=== PATIENT | female | born 1945 | race Caucasian/White ===

== ENCOUNTER → 2017-09-27 | Outpatient (CLI) | payer OTHER, MEDICARE ==
[~2017-09-27] VITALS: Ht 154.9 cm; Wt 102.1 kg
[~2017-09-27] MED LIST: ACETAMINOPHEN 500 MG TAB PO SCH; ALBU18002 INH; ASPI81TA28 PO; CEFAZOLIN 2000MG IV PUSH 15 ML IV SCH; CHOL1000 PO; CeleBREX 200 MG CAP PO SCH; DEXAMETHASONE 4 MG TAB PO SCH; DICL50TA3 PO; FAMOTIDINE 20 MG TAB PO SCH; FLUT1INH INH; GABA-113 PO; GABAPENTIN 300 MG CAP PO SCH; GEMF600T3 PO; GLC/500 PO; LACTATED RINGER'S 1000ML 1,000 ML IV SCH; LACTATED RINGER'S 1000ML 500 ML IV SCH; LISI40TA PO; METO100T44 PO; METOCLOPRAMIDE HCL 10 MG TAB PO SCH; MISO100T PO; OMEG10007 PO; PANT40TA PO; RISP1TAB68 PO; RISP2TAB22 PO; ROPIVACAINE 5MG/ML 30 ML 150 MG, BUPIVACAINE 0.5% MPF INJ 30 ML, EpINEphrine HCL INJ 0.... INFIL SCH; SERT-234 PO; SNT/10 PO
[2017-09-27 13:09] VITALS: Ht 154.9 cm; Wt 102.1 kg
--- NOTE | 2017-09-27 14:10 | PAT Medication Instructions ---
Service Date Sep 27, 2017. Current Home Medication List Albuterol Sulfate (Proair Respiclick), 2 PUFFS INH PRN Aspirin (Aspirin Ec), 81 MG PO QAM Cholecalciferol (Vitamin D3), 1 TAB PO QAM Diclofenac (Voltaren), 50 MG PO BID Fish Oil (Dubois-3), 1 CAP PO QAM Fluticasone Furoate-Vilanterol (Breo Ellipta), 1 PUFF INH QAM Gabapentin (Neurontin), 300 MG PO QID Gemfibrozil (Lopid), 600 MG PO BID Lisinopril (Zestril), 40 MG PO QAM Metformin Hcl (Glucophage), 500 MG PO BID Metoprolol Succ (Toprol Xl) (Toprol-Xl ), 100 MG PO QAM Misoprostol (Cytotec), 100 MCG PO BID Pantoprazole (Protonix), 40 MG PO QAM Risperidone (Risperdal), 1 MG PO QAM Risperidone (Risperdal), 2 MG PO HS Sertraline (Zoloft), 200 MG PO HS Zaleplon (Sonata), 10 MG PO HS PRN for PRN Medication Instructions For Your Scheduled Surgery -Contact your surgeon for instructions for: Diclofenac (Voltaren), 50 MG PO BID - Hold the following medications 2 weeks prior to surgery: Fish Oil (Dubois-3), 1 CAP PO QAM - Hold the following medications 24 hours prior to surgery: Gemfibrozil (Lopid), 600 MG PO BID - Hold the following medications the morning of surgery: Cholecalciferol (Vitamin D3), 1 TAB PO QAM Lisinopril (Zestril), 40 MG PO QAM Metformin Hcl (Glucophage), 500 MG PO BID Misoprostol (Cytotec), 100 MCG PO BID - Take the following medications the morning of surgery with a sip of water: Albuterol Sulfate (Proair Respiclick), 2 PUFFS INH PRN (if needed, and bring it with you to the hospital) Aspirin (Aspirin Ec), 81 MG PO QAM Fluticasone Furoate-Vilanterol (Breo Ellipta), 1 PUFF INH QAM Gabapentin (Neurontin), 300 MG PO QID Metoprolol Succ (Toprol Xl) (Toprol-Xl ), 100 MG PO QAM Pantoprazole (Protonix), 40 MG PO QAM Risperidone (Risperdal), 1 MG PO QAM - Take the following medications as scheduled the night before surgery: Albuterol Sulfate (Proair Respiclick), 2 PUFFS INH PRN (if needed) Gabapentin (Neurontin), 300 MG PO QID Risperidone (Risperdal), 2 MG PO HS Misoprostol (Cytotec), 100 MCG PO BID Sertraline (Zoloft), 200 MG PO HS Zaleplon (Sonata), 10 MG PO HS PRN for PRN (if needed) If you have any questions please call us at [phone] or [phone] or [phone]
--- NOTE | 2017-09-27 14:50 | DIAGNOSTIC IMAGING REPORT ---
CHEST 2 VIEWS ROUTINE CLINICAL HISTORY: pat preoperative evaluation COMPARISON STUDY: No previous studies for comparison. FINDINGS: The bones soft tissues and hemidiaphragms are normal. The cardiomediastinal silhouette is normal. The lungs are clear. The pulmonary vasculature is normal. IMPRESSION: Negative chest. The above report was generated using voice recognition software. It may contain grammatical, syntax or spelling errors. Electronically signed by: Kelvin Gonzalez M.D. 09/27/2017 2:49 PM Dictated Date/Time: 09/27/2017 2:47 PM
[2017-09-27 14:57] LABS: PTT PATIENT 24.3 SECONDS (21.0-31.0)
[2017-09-27 15:00] LABS: BASO % 0.4 %; BASO ABS # 0.04 K/uL (0-0.2); EOS % 3.2 %; EOS ABS # 0.31 K/uL (0-0.5); HEMATOCRIT 33.4 % (37-47); HEMOGLOBIN 11.2 g/dL (12.0-16.0); IG# 0.02 K/uL (0.00-0.02); LYMPH % 28.7 %; LYMPH ABS # 2.78 K/uL (1.2-3.4); MEAN CELL VOLUME 87.9 fL (80-100); MEAN CORPUSCULAR HEMOGLOBIN 29.5 pg (25-34); MEAN CORPUSCULAR HGB CONC 33.5 g/dl (32-36); MEAN PLATELET VOLUME 10.3 fL (7.4-10.4); MONO % 6.7 %; MONO ABS # 0.65 K/uL (0.11-0.59); NEUT % 60.8 %; NEUT ABS # 5.89 K/uL (1.4-6.5); PLATELET COUNT 249 K/uL (130-400); RED CELL DISTRIBUTION WIDTH CV 13.2 % (11.5-14.5); RED CELL DISTRIBUTION WIDTH SD 42.7 fL (36.4-46.3); WHITE BLOOD COUNT 9.69 K/uL (4.8-10.8)
[2017-09-27 15:56] LABS: HEMOGLOBIN A1C 5.8 % (4.5-5.6)
[2017-09-27 16:21] LABS: ALBUMIN 4.1 gm/dl (3.4-5.0); CALCIUM 9.5 mg/dl (8.5-10.1); CREATININE 0.95 mg/dl (0.60-1.20); POTASSIUM 4.2 mmol/L (3.5-5.1)
--- NOTE | 2017-10-04 11:55 | HISTORY & PHYSICAL EXAMINATION ---
DATE OF ADMISSION: 10/23/2017 CHIEF COMPLAINT: Left knee pain. HISTORY OF PRESENT ILLNESS: Ms. Michele is a 72-year-old female with a multiple-year history of left knee pain. The patient rates her pain a 10/10. She has pain with her daily activities. She has limited standing and walking tolerance. Pain is worse with weightbearing. The patient uses a walker to ambulate. She has had injections, bracing, NSAIDs and PT over the years without relief. She has failed conservative treatment and is scheduled for a left knee replacement. PAST MEDICAL HISTORY: Aortic stenosis, pulmonary hypertension, diabetes, and hypercholesterolemia. She denies history of DVT. PAST SURGICAL HISTORY: Hysterectomy, cholecystectomy, right trigger thumb and right carpal tunnel release. SOCIAL HISTORY: The patient denies alcohol or tobacco use. She quit smoking in the . She lives in a single-edvin home with her son and is retired. FAMILY HISTORY: Negative for DVT. MEDICATIONS: Amlodipine 5 mg daily, fexofenadine 180 mg daily, Janumet 50 mg 2 times daily, Crestor 10 mg daily, furosemide 40 mg daily, Welchol 625 mg, Micardis 40 mg daily, sertraline 100 mg daily, Maxair 200 mcg 2 puffs q. 4-6 hours p.r.n., aspirin 81 mg, vitamin E 400 units, Maalox, omega 3, Aleve p.r.n., zaleplon 10 mg. ALLERGIES: CODEINE CAUSES SHAKING AND SHORTNESS OF BREATH. REVIEW OF SYSTEMS: See HPI. Ten other systems reviewed, all negative. PHYSICAL EXAMINATION: VITAL SIGNS: Height 5 feet 1 inch, weight 226 pounds. BMI is 43. GENERAL: This is a well-developed, well-nourished female who is alert and oriented x3. Mood and affect are appropriate. HEENT: Normocephalic, atraumatic. Mucous membranes are moist and intact. NECK: Supple without lymphadenopathy. HEART: Regular rate and rhythm. She has a slight grade 2 systolic murmur. LUNGS: Clear to auscultation without wheezes or rhonchi. ABDOMEN: Soft and nontender. Bowel sounds are equal and active. EXTREMITIES: No ecchymosis, redness or warmth. Thigh and calf are soft and nontender. She has varus deformity. Range of motion is from 5-110 degrees with no laxity. She has +2 edema. She has +1 effusion. She is neurovascularly intact with +5/5 strength. X-RAY EXAMINATION: AP and lateral views show joint space narrowing and osteophyte formation. IMPRESSION: Degenerative joint disease, left knee. PLAN: The patient will be admitted for a left total knee arthroplasty. The patient may be a candidate for general anesthesia due to her aortic stenosis. We will plan on aspirin for DVT prophylaxis. She will have [facility] for home physical therapy. ARVIND
== END | disposition home or self-care (01) ==
LOC: C.LAB 08:00 → EDSTATUS 10-23 12:45
PROVIDERS: ATTEND Orthopaedic Surgery
DX: Z01.812 Encounter for preprocedural laboratory examination (principal); Z01.818 Encounter for other preprocedural examination; Z01.810 Encounter for preprocedural cardiovascular examination

== ENCOUNTER 2019-01-08 08:43 | Inpatient (IN) ==
--- NOTE | 2018-12-30 12:04 | Anesthesiology Consultation ---
Date of Service December 30, 2018 Assessment & Plan (1) Encounter for pre-operative examination: Surgery rescheduled to 01/08/19 due to abnormal BMP on pre-op testing. Seen by nephro: 12/23/18: SARA has "resolved." Renal function "stable" with creatinine at 1.2. Electrolytes "acceptable." Recommended avoiding NSAIDs, low salt diet and hydration. "No contraindication to upcoming surgery." - Cardio= 10/28/18= mild pulmonary HTN per right heart cath. "she has no CV disease. And no further testing advised prior to knee replacement surgery... She can proceed with planned knee replacement accepting all cardiac risks." - Check BSG AM DOS Chart Review Chart Review: Acceptable Risk for Surgery and Patient NOT seen in Pre Admission Testing History Surgery Operation Date: 01/08/19 09:40 Proposed Procedures p Left Total Knee Arthroplasty - Tomasz Jauregui DO Height/Weight Height: 5 ft 1 in Weight: 102.8 kg Allergies Allergy/AdvReac Type Severity Reaction Status Date / Time codeine Allergy Unknown SHAKINESS Verified 12/30/18 08:42 AND SOB Medications Home Medications Medication Instructions Recorded Confirmed Last Taken albuterol sulfate [ProAir HFA] 2 puff INHALATION Q6H PRN 10/16/18 12/30/18 Unknown aspirin 81 mg PO QAM 10/16/18 12/30/18 Unknown cholecalciferol (vitamin D3) 2,000 unit PO QAM 10/16/18 12/30/18 Unknown [Vitamin D3] cyanocobalamin (vitamin B-12) 500 mcg PO QAM 10/16/18 12/30/18 Unknown [Vitamin B-12] fluticasone furoate-vilanterol 1 inh INHALATION QAM 10/16/18 12/30/18 Unknown [Breo Ellipta] furosemide 40 mg PO QAM 10/16/18 12/30/18 Unknown gabapentin 300 mg PO QID 10/16/18 12/30/18 Unknown gemfibrozil 600 mg PO BID 10/16/18 12/30/18 Unknown lisinopril 40 mg PO QAM 10/16/18 12/30/18 Unknown meclizine 25 mg PO QAM 10/16/18 12/30/18 Unknown metformin 500 mg PO BID 10/16/18 12/30/18 Unknown metoprolol succinate 100 mg PO QAM 10/16/18 12/30/18 Unknown pantoprazole 40 mg PO QAM 10/16/18 12/30/18 Unknown risperidone 0.5 tab PO QAM 10/16/18 12/30/18 Unknown risperidone 2 mg PO QPM 10/16/18 12/30/18 Unknown sertraline 200 mg PO HS 10/16/18 12/30/18 Unknown zaleplon 10 mg PO HS 10/16/18 12/30/18 Unknown zonisamide 25 mg PO DAILY 12/30/18 12/30/18 Unknown Past Medical History Medical History Anemia CHRONIC; BASELINE HGB 10-11 RANGE PER CHART REVIEW Aortic stenosis "MILD" PER 2017 ECHO Asthma STABLE Chronic obstructive pulmonary disease STABLE Depression Diabetes mellitus, type 2 NIDDM GERD (gastroesophageal reflux disease) CONTROLLED Hyperlipidemia Hypertension Morbid obesity Osteoarthritis Pulmonary hypertension "MILD" PER 2017 RIGHT HEART CATH Sleep apnea NO DEVICE (NON-COMPLIANCE WITH CPAP) Spinal stenosis Stroke ~2010= NO RESIDUAL EFFECTS Past Surgical History Surgical History History of cardiac cath RIGHT HEART CATH (2017) History of carpal tunnel release LEFT CTR+ TRIGGER FINGER RELEASE History of cholecystectomy History of colonoscopy History of esophagogastroduodenoscopy (EGD) History of total hysterectomy with bilateral salpingo-oophorectomy (BSO) Hx of dilation and curettage Hx of tubal ligation Social History Smoking Status: Never smoker Hx Alcohol Use: No Hx Substance Use: No substance use type: does not use Testing Laboratory Results 11/21/18 WBC 9.59 H/H 10.8/33.3 PLATELETS 277 12/16/18 SODIUM 141 POTASSIUM 4.1 CHLORIDE 108 CO2 26 BUN 22 CREATININE 1.23 GLUCOSE 106 11/21/18 UA negative bacteria Electrocardiogram Date: 10/28/18 SR at 61bpm. Abnormal P axis. Low voltage in precordial leads. Chest X-Ray Date: 10/18/18 Findings: + NAD Atherosclerosis of the aortic arch. Echocardiogram Date: 11/13/16 LVEF 65%. Borderline cLVH. Mild aortic stenosis (mean gradient 13mmhg, no KAYLA noted), RVSP 31mmhg Stress Test Date: 04/09/17 Type: DSE Stress ECHO negative for prior infarction or myocardial ischemia. Equivocal ST segment depression in inferior/lateral precordial leads that did not meet criteria for ischemia. Hypertensive response to dobutamine with peak BP 220/96. Subsequent cardiac cath 07/2017 Cardiac Catheterization Date: 08/02/17 (Right heart cath): Normal cardiac output with mild pulmonary htn
[~2019-01-08 08:43] MED LIST changes: -ALBU18002 INH; -ASPI81TA28 PO; +BUPIVACAINE 0.5 % 5 MG/1 ML PF 10ML VIAL ONE; +CEFAZOLIN 2000MG 2,000 MG/15 ML SYR IV SCH; -CEFAZOLIN 2000MG IV PUSH 15 ML IV SCH; -CHOL1000 PO; -DEXAMETHASONE 4 MG TAB PO SCH; -DICL50TA3 PO; -FLUT1INH INH; -GABA-113 PO; -GABAPENTIN 300 MG CAP PO SCH; +GABAPENTIN 300 MG PO SCH; -GEMF600T3 PO; -GLC/500 PO; -LACTATED RINGER'S 1000ML 1,000 ML IV SCH; -LACTATED RINGER'S 1000ML 500 ML IV SCH; +LIDOCAINE HCL 2% 2 ML VIAL/AMP(20MG/ML) INFIL ONE; -LISI40TA PO; +LR 500ML BOLUS, THEN 15ML/HR IV SCH; -METO100T44 PO; -METOCLOPRAMIDE HCL 10 MG TAB PO SCH; +METOCLOPRAMIDE HCL 10 MG TABLET PO SCH; +MIDAZOLAM HCL 1 MG/ML 2ML VIAL ONE; -MISO100T PO; -OMEG10007 PO; -PANT40TA PO; +PROPOFOL IV EMULSION 10 MG/ML 20 ML VIAL IV ONE; -RISP1TAB68 PO; -RISP2TAB22 PO; +ROPIVACAINE 0.5% 5 MG/ML 30 ML VIAL ONE; +ROPIVACAINE 0.5% HCL/PF 150 MG, BUPIVACAINE 0.5% MPF 30 ML, EPINEPHrine 30MG/30ML (OR U... INFIL SCH; -ROPIVACAINE 5MG/ML 30 ML 150 MG, BUPIVACAINE 0.5% MPF INJ 30 ML, EpINEphrine HCL INJ 0.... INFIL SCH; -SERT-234 PO; -SNT/10 PO; +TRANEXAMIC ACID 1,000 MG **IV Intra-op IV SCH; +TRANEXAMIC ACID 1,000 MG **IV Pre-op IV SCH; +dexAMETHasone 4 MG TAB PO SCH; +fentaNYL citrate 100 MCG/2 ML VIAL ONE
--- NOTE | 2019-01-08 10:54 | History & Physical Bridge Note ---
Date of Service January 08, 2019 History & Physical Bridge Note I have examined the patient, reviewed the History & Physical and in the interval since the performance of the History & Physical I have noted the following changes of clinical significance: no changes noted
[2019-01-08] MEDS ORDERED: ORTHO JOINT ANESTHETIC ONE (11:38)
[2019-01-08] MEDS ORDERED: BACITRACIN INJ 50,000 UNIT VIAL ONE (11:38)
[2019-01-08] MEDS ORDERED: POVIDONE-IODINE OP SOLN 30 ML BTL ONE (11:38)
[2019-01-08] MEDS ORDERED: ePHEDrine sulfate 50 MG/ML AMP IV PRN (12:00)
[2019-01-08] MEDS ORDERED: HYDROmorphone INJ 1 MG/ML SYRINGE IV PRN (12:00)
[2019-01-08] MEDS ORDERED: ATROPINE SULFATE 0.1 MG/ML 10ML SYR IV PRN (12:00)
[2019-01-08] MEDS ORDERED: DEXAMETHASONE SOD INJ 4 MG/ML VIAL ONE (12:09)
[2019-01-08] MEDS ORDERED: ePHEDrine sulfate 50 MG/ML SYR ONE (12:38)
--- NOTE | 2019-01-08 13:00 | Operative Report ---
Post Operative Report Pre & Post Diagnosis Operation Date: 01/08/19 11:40 Pre-Op Diagnosis: LEFT KNEE OSTEOARTHRITIS Post-Op Diagnosis: LEFT KNEE OSTEOARTHRITIS Procedure Operation Date: 01/08/19 11:40 Actual Procedures p Left Total Knee Arthroplasty(Left) utilizing some [employer] journey to non-block total knee arthroplasty size 4 femur 4 tibia 9 polyethylene 32 oval p sae Jauregui DO Surgeon Tomasz Jauregui DO Training Personnel Supervisor Derek MANCINI Estimated Blood Loss 5 Findings Consistent with Post-Op Diagnosis Patient presents with severe end-stage tricompartmental degenerative joint disease of the left knee for left total knee arthroplasty no response to conservative management. She is findings at the time of surgery volumes of subchondral sclerosis marginal osteophytes cystic changes severe end-stage tr icompartmental DJD varus alignment with eburnated [id number] and a moderate to large effusion Specimens Bone and cartilage Drains Medium bore Hemovac Complications none Disposition Accompanied Patient To Recovery: No Disposition: Recovery Room Indications Patient was in severe central canal degenerative joint disease no response to conservative management the above findings noted times surgery patient failed attempts of Visco supplementation corticosteroid injections relative rest activity modification bracing and presents for total knee arthroplasty Description of Procedure After proper prepping and draping of the left lower extremity anterior midline incision was made over the region of the extensor extensor mechanism after meticulous hemostasis was obtained and maintained in subcutaneous tissues a medial parapatellar incision was made The patella was subluxed lateralward the medial lateral gutter were cleaned from any hypertrophic synovitis and scar tissue of the distal femoral block was placed and the distal femoral osteotomy cut was made subsequently the chamfers anterior and posterior osteotomy cuts were made utilizing the 4-in-1 block the tibia was subsequently subluxed anteriorward medial and ateral meniscal remnants were excised in their entirety remnants of the anterior and posterior cruciate ligaments were excised in their entirety excellent exposure of the proximal tibia was obtained the tibial osteotomy guide was placed on the proximal tibial osteotomy cut was made once again the knee was irrigated with copious amounts of sterile saline solution the patella was subsequently everted lateralward thickened scar tissue around the patella was removed the patella was subsequently cut utilizing a freehand technique and was drilled prepared for final preparation and placement of patella socially flexion-extension gaps were checked and the equal and symmetric trials were placed to the appropriate femoral and tibial trials with poly-spacer being placed for equal flexion and extension gaps and full range of motion including extension to 0 and flexion to 140 the trial components after having been taken to recovery range of motion was subsequently removed meticulous hemostasis was obtained and maintained subsequently a knee block injection of joint cocktail including ropivacaine 0.5% 150 mg. Bupivacaine 0.5% epinephrine 1-200,030 mL's toradol 30 mg dexamethasone 4 mg ketamine 10 mg clonidine 100 micrograms normal saline solution 30 mg was infiltrated into the soft tissues of the posterior knee medial lateral gutters and periosteal synovium special attention was paid to protect neurovascular structures at all times subsequently trial components having been removed the knee was irrigated with sterile saline solution. debris was removed the proximal tibia was subsequently prepared and was made ready for the placement of the tibial component tibial component was also cemented and tamped into position the femoral component was subsequently placed and cemented in the position the patellar component was subsequently cemented in position because hemostasis once again obtained and maintained wound having been thoroughly irrigated with debridement and debridement lavage was performed as well as a medial parapatellar incision closed with #1 Vicryl in interrupted fashion subcutaneous was closed with #2 Vicryl skin was closed with skin clips. PA-C was necessary for prepping and drapping as well as wound closure of deep fascia Sub cutaneous tissue and skin and was necessary for the case. A sterile compressive dressing was placed patient was taken to recovery in stable condition of report dictated by Juventino I attest to the content of the Intraoperative Record and any orders documented therein. Any exceptions are noted below. I attest to the content of the Intraoperative Record and any orders documented therein. Any exceptions are noted below.
[2019-01-08] MEDS ORDERED: BISACODYL 10 MG SUPP PR PRN (13:48)
[2019-01-08] MEDS ORDERED: MAGNESIUM HYDROXIDE SUSP 30 ML UDC PO PRN (13:48)
[2019-01-08] MEDS ORDERED: NALOXONE HCL 0.4 MG/1 ML VIAL/CARP IV PRN (13:48)
[2019-01-08] MEDS ORDERED: ONDANSETRON INJ 2 MG/ML 2 ML VIAL IV PRN (13:48)
[2019-01-08] MEDS ORDERED: HYDROmorphone INJ 0.5 MG/0.5 ML SYR IV PRN (13:49)
--- NOTE | 2019-01-08 14:10 | XRay Report ---
XR knee LT 2V routine CLINICAL HISTORY: Surgical Post Op postoperative evaluation COMPARISON: None. DISCUSSION: Anatomic alignment post total left knee arthroplasty. Good contact between prosthetic and underlying bone. Expected soft tissue postoperative change. Surgical drains are in position. IMPRESSION: Anatomic alignment post total left knee arthroplasty. The above report was generated using voice recognition software. It may contain grammatical, syntax or spelling errors. Electronically signed by: Kelvin Gonzalez M.D. 01/08/2019 2:09 PM
--- NOTE | 2019-01-08 14:38 | Anesthesiology Progress Note ---
Date of Service January 08, 2019 Anesthesia Post Procedure Vital Signs Vital Signs: Temp Pulse Pulse Resp BP Pulse Ox 01/08/19 14:30 65 19 161/77 H 98 01/08/19 14:20 70 18 173/69 H 99 01/08/19 14:10 73 15 179/78 H 100 01/08/19 14:00 76 17 171/84 H 100 01/08/19 13:50 66 19 151/72 H 100 01/08/19 13:42 36.8 C 76 26 H 166/82 H 100 01/08/19 09:25 36.9 C 60 20 149/92 H 99 Transfer of Care Handoff Completed per policy Notes Mental Status: alert / awake / arousable Patient Amnestic to Procedure: Yes Nausea / Vomiting: adequately controlled Pain: adequately controlled Airway Patency, RR, SpO2: stable & adequate BP & HR: stable & adequate Hydration State: stable & adequate Anesthetic Complications: no major complications apparent and Pt Satisfied with anesthetic care
[2019-01-08] MEDS: SODIUM CHLORIDE 0.9% 1000ML 1,000 ML IV SCH (17:26)
[2019-01-08] MEDS ORDERED: GLUCOSE 10 TABS/TUBE PO PRN (17:57)
[2019-01-08] MEDS ORDERED: CARBOHYDRATES FOR HYPOGLYCEMIA PO PRN (17:57)
[2019-01-08] MEDS ORDERED: GLUCOSE 40% GEL 15 GM TUBE PO PRN (17:57)
[2019-01-08] MEDS ORDERED: DEXTROSE 50% 50 ML SYRINGE IV PRN (17:57)
[2019-01-08] MEDS ORDERED: GLUCAGON FOR INJ 1 MG VIAL SQ PRN (17:57)
[2019-01-08] MEDS: CEFAZOLIN 2000MG 2,000 MG/15 ML SYR IV SCH (20:31)
[2019-01-08] MEDS: DOCUSATE SODIUM 100 MG CAP PO SCH (20:32)
[2019-01-08] MEDS: SENNA 8.6 MG TAB PO SCH (20:32)
[2019-01-08] MEDS: ASPIRIN 81 MG ECTAB PO SCH (20:33)
[2019-01-08] MEDS: INSULIN ASPART 100 UNITS/ML 3 ML PEN SC SCH (20:41)
[2019-01-08] MEDS: INSULIN GLARGINE SOLOSTAR 100 UNITS/ML 3 ML PEN SC SCH (20:41)
[2019-01-08] MEDS ORDERED: ALBUTEROL HFA 8 GM INHALER INH PRN (21:39)
[2019-01-08] MEDS: ACETAMINOPHEN 500 MG TAB PO SCH (21:48)
--- NOTE | 2019-01-08 21:59 | Consultation ---
Date of Consultation January 08, 2019 Assessment & Plan (1) Asthma: Presently with no SOB. Lungs CTA. Patient reports she has not started using her Breo at home yet -Albuterol PRN Present on Admission?: Yes (2) COPD (chronic obstructive pulmonary disease): Chronic. Stable. No evidence of acute exacerbation at present -Continue Albuterol PRN -Patient may benefit from anticholinergic/Spiriva - to be managed by PCP Present on Admission?: Yes (3) LO on CPAP: Patient reports she rarely wears her CPAP. Discussed that untreated LO has severe effects on the heart and lungs. Encouraged use -CPAP qHS Present on Admission?: Yes (4) Hypertension: Blood pressure well controlled at present -Continue Metoprolol -Continue Lisinopril - patient reports taking 20mg po daily rather than 40 -She uses Lasix qAM for swelling but has not been taking it for the past 2-3 weeks. Will continue to hold for now. Patient may resume this medication outpatient as directed by PCP. Present on Admission?: Yes (5) Hyperlipidemia: Chronic -Continue Gemfibrozil BID Present on Admission?: Yes (6) GERD (gastroesophageal reflux disease): Chronic. Stable -Continue Protonix daily Present on Admission?: Yes (7) Diabetes: Patient with DM-II on Metformin at home. A1C=6.3 in October 2017 indicating adequate control -Hold Metformin -Lantus 10u BID with ISS weight based -Continue to monitor blood sugars Present on Admission?: Yes (8) Pulmonary hypertension: Stable. Chronic -Encourage use of CPAP Present on Admission?: Yes (9) CVA (cerebral vascular accident): Old CVA. No residual deficit -Continue ASA and Gemfibrozil (10) Depression: Chronic. Well controlled -Continue Sertraline and Risperidone at home doses Thank you very much for this consult. AM labs have been ordered, will follow. History of Present Illness Reason for Consultation: Post operative medical management Attending Physician: Tomasz Jauregui DO History of Present Illness 73yo C female with multiple medical problems, s/p left TKA performed today by Dr. Jauregui. Surgery was well tolerated, no immediate complications identified. Patient presently comfortable, pain is minimal. No nausea. She has eaten dinner without difficulty. No BM yet but is passing flatus. Allergies Allergy/AdvReac Type Severity Reaction Status Date / Time codeine Allergy Unknown SHAKINESS Verified 01/08/19 09:12 AND SOB Home Medications Home Medications Medication Instructions Recorded Confirmed Type albuterol sulfate [ProAir HFA] 2 puff INHALATION Q6H PRN 10/16/18 01/08/19 History aspirin 81 mg PO QAM 10/16/18 01/08/19 History cholecalciferol (vitamin D3) 2,000 unit PO QAM 10/16/18 01/08/19 History [Vitamin D3] cyanocobalamin (vitamin B-12) 500 mcg PO QAM 10/16/18 01/08/19 History [Vitamin B-12] fluticasone furoate-vilanterol 1 inh INHALATION QAM 10/16/18 01/08/19 History [Breo Ellipta] furosemide 40 mg PO QAM 10/16/18 01/08/19 History gabapentin 300 mg PO QID 10/16/18 01/08/19 History gemfibrozil 600 mg PO BID 10/16/18 01/08/19 History lisinopril 40 mg PO QAM 10/16/18 01/08/19 History meclizine 25 mg PO QAM 10/16/18 01/08/19 History metformin 500 mg PO BID 10/16/18 01/08/19 History metoprolol succinate 100 mg PO QAM 10/16/18 01/08/19 History pantoprazole 40 mg PO QAM 10/16/18 01/08/19 History risperidone 0.5 tab PO QAM 10/16/18 01/08/19 History risperidone 2 mg PO QPM 10/16/18 01/08/19 History sertraline 200 mg PO HS 10/16/18 01/08/19 History zaleplon 10 mg PO HS 10/16/18 01/08/19 History zonisamide 25 mg PO DAILY 12/30/18 01/08/19 History Patient History Medical History Anemia CHRONIC; BASELINE HGB 10-11 RANGE PER CHART REVIEW Aortic stenosis "MILD" PER 2017 ECHO Asthma STABLE Chronic obstructive pulmonary disease STABLE Depression Diabetes mellitus, type 2 NIDDM GERD (gastroesophageal reflux disease) CONTROLLED Hyperlipidemia Hypertension Morbid obesity Osteoarthritis Pulmonary hypertension "MILD" PER 2017 RIGHT HEART CATH Sleep apnea NO DEVICE (NON-COMPLIANCE WITH CPAP) Spinal stenosis Stroke ~2010= NO RESIDUAL EFFECTS Surgical History History of cardiac cath RIGHT HEART CATH (2017) History of carpal tunnel release LEFT CTR+ TRIGGER FINGER RELEASE History of cholecystectomy History of colonoscopy History of esophagogastroduodenoscopy (EGD) History of total hysterectomy with bilateral salpingo-oophorectomy (BSO) Hx of dilation and curettage Hx of tubal ligation Social History Preferred Language: Chinese Communication Ability: Effective Certified Pest Control Technician Required: No Beliefs That Will Affect Care: None Current Living Situation: Family Current Living Situation Comment: SON Other Information That Helps Us Care for You: No Feels Safe at Home: Yes Safety Concerns: Feels Safe At This Time Smoking Status: Never smoker Do You Dip or Chew Tobacco: No Second Hand Exposure: No Tobacco Cessation Education Requested by Patient: No Hx Alcohol Use: No Hx Substance Use: No Review of Systems Review of Systems: All systems reviewed & are unremarkable except as noted in HPI & below Physical Exam Physical Exam: General: patient resting comfortably, NAD, non-toxic in a ppearance, AA&O x 4 Skin: warm, dry, intact, no rashes or lesions HEENT: NC/AT, PERRL, EOMI, anicteric sclera, conjunctiva without injection, external ear normal to inspection and nontender, nares patent, moist mucus membranes, dentition intact, no oropharyngeal lesions, neck supple, trachea midline, no LAD, no thyromegaly, no JVD Heart: +S1/S2, regular, 3/6 ELVIS at 2nd right ICS with radiation across the precordium, no r/g Lungs: equal air entry bilaterally, no rales/rhonchi/wheezes Abd: +BS, soft, NT/ND, no masses/organomegaly/ascites Ext: warm, 2+ pulses in UE/LE bilaterally, no clubbing/cyanosis or edema, left leg with dressing in place Neuro: nonfocal, patient AA&O x 4, speech intact, no facial droop, moving all extremities on command with equal strength 5/5 Results & Data Vital Signs (Past 12 Hours) Vital Signs Temp Pulse Pulse Resp BP Pulse Ox 01/08/19 20:53 36.6 C 61 16 120/69 95 01/08/19 18:17 36.2 C L 65 16 117/65 99 01/08/19 17:24 36.3 C L 61 18 138/73 100 01/08/19 16:33 36.3 C L 68 16 132/72 98 01/08/19 16:03 36.4 C L 73 20 133/73 98 01/08/19 15:30 36.7 C 73 16 175/75 H 98 01/08/19 14:50 36.6 C 72 23 164/60 H 99 01/08/19 14:40 62 19 152/65 H 98 01/08/19 14:30 65 19 161/77 H 98 01/08/19 14:20 70 18 173/69 H 99 01/08/19 14:10 73 15 179/78 H 100 01/08/19 14:00 76 17 171/84 H 100 01/08/19 13:50 66 19 151/72 H 100 01/08/19 13:42 36.8 C 76 26 H 166/82 H 100 Laboratory Results Lab Results 01/08/19 01/08/19 01/08/19 Range/Units 09:20 09:27 13:50 POC Glucose 115 H 156 H (70-99) Blood Type A Positive Antibody Screen NEGATIVE 01/08/19 01/08/19 Range/Units 17:41 20:36 POC Glucose 182 H 232 H (70-99) Blood Type Antibody Screen Diagnostic Findings XR knee LT 2V routine CLINICAL HISTORY: Surgical Post Op postoperative evaluation COMPARISON: None. DISCUSSION: Anatomic alignment post total left knee arthroplasty. Good contact between prosthetic and underlying bone. Expected soft tissue postoperative change. Surgical drains are in position. IMPRESSION: Anatomic alignment post total left knee arthroplasty. The above report was generated using voice recognition software. It may contain grammatical, syntax or spelling errors. Electronically signed by: Kelvin Gonzalez M.D. 01/08/2019 2:09 PM Dictated: 01/08/19 1408 Transcribed: 01/08/19 1408 (1) Hypertension Hypertension type: essential hypertension Qualified Code(s): I10 - Essential (primary) hypertension (2) Hyperlipidemia Hyperlipidemia type: unspecified Qualified Code(s): E78.5 - Hyperlipidemia, unspecified (3) GERD (gastroesophageal reflux disease) Esophagitis presence: esophagitis presence not specified Qualified Code(s): K21.9 - Gastro-esophageal reflux disease without esophagitis (4) Diabetes Diabetes mellitus type: type 2 Diabetes mellitus termite control service representative insulin use: without fdc use Diabetes mellitus complication status: without complication Qualified Code(s): E11.9 - Type 2 diabetes mellitus without complications (5) CVA (cerebral vascular accident) CVA mechanism: unspecified Qualified Code(s): I63.9 - Cerebral infarction, unspecified
[2019-01-09] MEDS: CEFAZOLIN 2000MG 2,000 MG/15 ML SYR IV SCH (04:51)
[2019-01-09] MEDS: SODIUM CHLORIDE 0.9% 1000ML 1,000 ML IV SCH (05:36)
[2019-01-09 05:43] LABS: Hematocrit (blood only) 27.9 % (37-47); Hemoglobin 9.5 g/dL (12.0-16.0); Mean Corpuscular Hgb Conc 34.1 g/dL (32-36); Mean Corpuscular Volume 85.6 fL (80-100); Mean Platelet Volume 10.3 fL (7.4-10.4); Platelet Count 208 K/uL (130-400); RDW Coefficient of Variation 12.7 % (11.5-14.5); RDW Standard Deviation 39.8 fL (36.4-46.3); Red Blood Count 3.26 M/uL (4.2-5.4); White Blood Count 14.61 K/uL (4.8-10.8)
[2019-01-09] MEDS: ACETAMINOPHEN 500 MG TAB PO SCH ×3 (05:58→21:09)
[2019-01-09 06:15] LABS: BUN Creatinine Ratio 17.4 (10-20); Calcium 8.4 mg/dl (8.5-10.1); Creatinine Clr Calc Pharmacy 45.5 ml/min; Est GFR (African American) 50.6; Est GFR (Non-African American) 43.7; Potassium 4.8 mmol/L (3.5-5.1)
--- NOTE | 2019-01-09 08:51 | Orthopedic Progress Note ---
Date of Service January 09, 2019 Assessment & Plan (1) Osteoarthritis of left knee: PT OT protocols. Weightbearing as tolerated. DVT prophylaxis with SCDs, CHRIST hose, aspirin twice daily. Pain management with oxycodone, hydromorphone, acetaminophen. DC planning-possibility of needing rehab facility versus home health services. Subjective Postop day 1 status post left total knee arthroplasty. Patient is sitting up in her chair at the bedside. She is alert and oriented. She has no complaints at this time. Denies shortness of breath, chest pain, lightheadedness. Pain is controlled. Physical Exam Physical Exam: Dressings are clean, dry, and intact. Calves are soft nontender. Neurovascular intact. Toes are mobile. Results & Data Vital Signs (Past 12 Hours) Vital Signs Temp Pulse Resp BP Pulse Ox 01/09/19 07:19 36.4 C L 64 18 112/65 100 01/09/19 04:15 36.7 C 58 L 18 121/76 97 01/08/19 22:53 36.8 C 60 16 126/72 94 01/08/19 20:53 36.6 C 61 16 120/69 95 Laboratory Results Laboratory Results WBC 14.61 K/uL (4.8-10.8) H 01/09/19 05:20 RBC 3.26 M/uL (4.2-5.4) L 01/09/19 05:20 Hgb 9.5 g/dL (12.0-16.0) L 01/09/19 05:20 Hct 27.9 % (37-47) L 01/09/19 05:20 MCV 85.6 fL (80-100) 01/09/19 05:20 MCH 29.1 pg (25-34) 01/09/19 05:20 MCHC 34.1 g/dL (32-36) 01/09/19 05:20 RDW Std Deviation 39.8 fL (36.4-46.3) 01/09/19 05:20 RDW Coeff of Dillan 12.7 % (11.5-14.5) 01/09/19 05:20 Plt Count 208 K/uL (130-400) 01/09/19 05:20 MPV 10.3 fL (7.4-10.4) 01/09/19 05:20 Sodium 138 mmol/L (136-145) 01/09/19 05:20 Potassium 4.8 mmol/L (3.5-5.1) 01/09/19 05:20 Chloride 108 mmol/L (98-107) H 01/09/19 05:20 Carbon Dioxide 27 mmol/L (21-32) 01/09/19 05:20 3.0 (3-11) 01/09/19 05:20 BUN 22 mg/dl (7-18) H 01/09/19 05:20 1.24 mg/dl (0.6-1.2) H 01/09/19 05:20 Est Cr Clr Drug Dosing 45.5 ml/min 01/09/19 05:20 Est GFR ( Amer) 50.6 01/09/19 05:20 Est GFR (Non-Af Amer) 43.7 01/09/19 05:20 17.4 (10-20) 01/09/19 05:20 Glucose 126 mg/dl (70-99) H 01/09/19 05:20 POC Glucose 125 (70-99) H 01/09/19 08:18 Calcium 8.4 mg/dl (8.5-10.1) L 01/09/19 05:20 Blood Type A Positive 01/08/19 09:20 Antibody Screen NEGATIVE 01/08/19 09:20
[2019-01-09] MEDS: METOPROLOL SUCC 50MG EXT REL TAB PO SCH (09:31)
[2019-01-09] MEDS: LISINOPRIL 40 MG TAB PO SCH (09:31)
[2019-01-09] MEDS: PANTOprazole 40 MG TAB PO SCH (09:32)
[2019-01-09] MEDS: risperiDONE 2 MG TABLET PO SCH ×2 (09:32→21:09)
[2019-01-09] MEDS: MULTIVITAMIN TAB PO SCH (09:33)
[2019-01-09] MEDS: GABAPENTIN 300 MG CAP PO SCH ×4 (09:33→21:09)
[2019-01-09] MEDS: GEMFIBROZIL 600 MG TAB PO SCH ×2 (09:33→21:09)
[2019-01-09] MEDS: DOCUSATE SODIUM 100 MG CAP PO SCH ×2 (09:33→21:09)
[2019-01-09] MEDS: MECLIZINE HCL 25 MG TAB PO SCH (09:33)
[2019-01-09] MEDS: ASPIRIN 81 MG ECTAB PO SCH ×2 (09:33→21:09)
[2019-01-09] MEDS: INSULIN GLARGINE SOLOSTAR 100 UNITS/ML 3 ML PEN SC SCH ×2 (09:39→21:17)
[2019-01-09] MEDS: INSULIN ASPART 100 UNITS/ML 3 ML PEN SC SCH ×4 (09:40→21:16)
--- NOTE | 2019-01-09 10:22 | Anesthesiology Progress Note ---
Date of Service January 09, 2019 Anesthesia Post Procedure Vital Signs Vital Signs: Temp Pulse Pulse Resp BP Pulse Ox 01/09/19 07:19 36.4 C L 64 18 112/65 100 01/09/19 04:15 36.7 C 58 L 18 121/76 97 01/08/19 22:53 36.8 C 60 16 126/72 94 01/08/19 20:53 36.6 C 61 16 120/69 95 01/08/19 18:17 36.2 C L 65 16 117/65 99 01/08/19 17:24 36.3 C L 61 18 138/73 100 01/08/19 16:33 36.3 C L 68 16 132/72 98 01/08/19 16:03 36.4 C L 73 20 133/73 98 01/08/19 15:30 36.7 C 73 16 175/75 H 98 01/08/19 14:50 36.6 C 72 23 164/60 H 99 01/08/19 14:40 62 19 152/65 H 98 01/08/19 14:30 65 19 161/77 H 98 01/08/19 14:20 70 18 173/69 H 99 01/08/19 14:10 73 15 179/78 H 100 01/08/19 14:00 76 17 171/84 H 100 01/08/19 13:50 66 19 151/72 H 100 01/08/19 13:42 36.8 C 76 26 H 166/82 H 100 Pain Intensity Left Knee: Pain Intensity: 6 Notes Mental Status: alert / awake / arousable and participated in evaluation Patient Amnestic to Procedure: Yes Nausea / Vomiting: adequately controlled Pain: adequately controlled Airway Patency, RR, SpO2: stable & adequate BP & HR: stable & adequate Hydration State: stable & adequate Neuraxial Anesthesia: was administered and sensory block resolved Anesthetic Complications: no major complications apparent
[2019-01-09] MEDS: OXYCODONE HCL IR 5 MG TAB (IMMEDIATE RELEASE) PO PRN ×3 (15:47→21:27)
--- NOTE | 2019-01-09 16:55 | Hospitalist Progress Note ---
Date of Service January 09, 2019 Assessment & Plan (1) Asthma: continue Breo Elipta albuterol PRN lungs clear, no wheezing, no distress (2) COPD (chronic obstructive pulmonary disease): Chronic. Stable. No evidence of acute exacerbation at present -Continue Albuterol PRN -Patient may benefit from anticholinergic/Spiriva - to be managed by PCP (3) LO on CPAP: Patient reports she rarely wears her CPAP. Discussed that untreated LO has severe effects on the heart and lungs. Encouraged use -CPAP qHS encouraged to use at home (4) Hypertension: Blood pressure well controlled at present -Continue Metoprolol -Continue Lisinopril - patient reports taking 20mg -She uses Lasix qAM for swelling but has not been taking it for the past 2-3 weeks. Will continue to hold for now. Patient may resume this medication outpatient as directed by PCP. (5) Hyperlipidemia: Chronic -Continue Gemfibrozil BID (6) GERD (gastroesophageal reflux disease): Chronic. Stable -Continue Protonix daily (7) Diabetes: Patient with DM-II on Metformin at home. A1C=6.3 in October 2017 indicating adequate control -Hold Metformin while inpatient but resume on d/c -Lantus 10u BID with ISS weight based -watch for hypoglycemia, no episodes (8) Pulmonary hypertension: Stable. Chronic -Encourage use of CPAP (9) CVA (cerebral vascular accident): Old CVA. No residual deficit -Continue ASA and Gemfibrozil (10) Depression: Chronic. Well controlled -Continue Sertraline and Risperidone at home doses (11) Acute blood loss as cause of postoperative anemia: Hb down to 9.5 from 10.8, not a concern, will monitor in the AM at this time patient is stable medically, okay for discharge when okay with primary team will sign off at this time, do not hesitate to call for any acute changes Subjective patient doing well experiencing some pain in left knee but controlled participating in therapy breathing well, no wheezing or dyspnea, has a cough but it is chronic no chest pain or pressure today reviewed labs, Hb down very slightly, Cr stable and electrolytes stable Review of Systems Review of Systems: All systems reviewed & are unremarkable except as noted in HPI & below Respiratory: + cough; no dyspnea and no dyspnea on exertion Cardiovascular: no chest pain and no edema Gastrointestinal: + constipation (+ flatus, no BM yet); no abdominal pain, no nausea, no vomiting and no diarrhea/loose stools Musculoskeletal: + joint pain (left knee) Physical Exam Constitutional: WD/WN, vitals as above + obese Eyes: PERRL, conjunctivae normal, anicteric sclerae ENMT: external ear and nose normal, oropharynx normal Neck: trachea midline, no thyromegaly Respiratory: normal respiratory effort, lungs clear to auscultation Cardiovascular: RRR, no murmur, no edema Gastrointestinal (Abdomen): normal bowel sounds, soft, nontender, no hepatosplenomegaly Musculoskeletal: Head/Neck/Chest: normocephalic, head atraumatic and neck supple Extremities: + limited ROM of extremities (left knee immobilized, swollen); no cyanosis and no clubbing Skin: no rashes, warm and dry Neurologic: patellar DTR's 2+ bilat, sensation intact and PERRL, EOMI, accommodation nl, no face palsy, no dysarthria Psychiatric: A+Ox3, euthymic affect Lymphatic: no cervical or axillary lymphadenopathy Results & Data Vital Signs (Past 12 Hours) Vital Signs Temp Pulse Resp BP Pulse Ox 01/09/19 15:43 36.6 C 56 L 19 109/68 98 01/09/19 07:19 36.4 C L 64 18 112/65 100 Laboratory Results Laboratory Results - last 24 hr 01/08/19 01/08/19 01/09/19 17:41 20:36 05:20 WBC 14.61 H RBC 3.26 L Hgb 9.5 L Hct 27.9 L MCV 85.6 MCH 29.1 MCHC 34.1 RDW Std Deviation 39.8 RDW Coeff of Dillan 12.7 Plt Count 208 MPV 10.3 Sodium Potassium Chloride Carbon Dioxide Anion Gap BUN Creatinine Est Cr Clr Drug Dosing Est GFR ( Amer) Est GFR (Non-Af Amer) BUN/Creatinine Ratio Glucose POC Glucose 182 H 232 H Calcium 01/09/19 01/09/19 01/09/19 05:20 08:18 12:14 WBC RBC Hgb Hct MCV MCH MCHC RDW Std Deviation RDW Coeff of Dillan Plt Count MPV Sodium 138 Potassium 4.8 Chloride 108 H Carbon Dioxide 27 Anion Gap 3.0 BUN 22 H Creatinine 1.24 H Est Cr Clr Drug Dosing 45.5 Est GFR ( Amer) 50.6 Est GFR (Non-Af Amer) 43.7 BUN/Creatinine Ratio 17.4 Glucose 126 H POC Glucose 125 H 176 H Calcium 8.4 L Medications Administered Current Inpatient Medications Acetaminophen (Tylenol) 1,000 mg PO Q8 DAMASO Stop: 02/07/19 21:59 Last Admin: 01/09/19 13:09 Dose: 1,000 mg Documented by: Albuterol (Ventolin Hfa) 2 puffs INH Q6H PRN PRN Reason: sob Aspirin (Ecotrin Ectab) 81 mg PO BID DAMASO Stop: 02/07/19 20:59 Last Admin: 01/09/19 09:33 Dose: 81 mg Documented by: Bisacodyl (Dulcolax) 10 mg AL DAILY PRN PRN Reason: Constipation Stop: 02/07/19 13:47 Dextrose (Dextrose 50%) 25 - 50 ml IV UD PRN; Protocol PRN Reason: Hypoglycemia Protocol Stop: 02/07/19 17:56 Docusate Sodium (Colace) 100 mg PO BID DAMASO Stop: 02/07/19 20:59 Last Admin: 01/09/19 09:33 Dose: 100 mg Documented by: Gabapentin (Neurontin) 300 mg PO QID DAMASO Stop: 02/08/19 08:59 Last Admin: 01/09/19 13:09 Dose: 300 mg Documented by: Gemfibrozil (Lopid) 600 mg PO BID [facility] Stop: 02/08/19 08:59 Last Admin: 01/09/19 09:33 Dose: 600 mg Documented by: Glucagon (Glucagen) 1 mg SQ UD PRN; Protocol PRN Reason: Hypoglycemia Protocol Stop: 02/07/19 17:56 Glucose (Glucose 40%) 15 - 30 gm PO UD PRN; Protocol PRN Reason: Hypoglycemia Protocol Stop: 02/07/19 17:56 Glucose (Dex4 Glucose) 4 - 8 tabs PO UD PRN; Protocol PRN Reason: Hypoglycemia Protocol Stop: 02/07/19 17:56 Hydromorphone HCl (Dilaudid) 0.5 mg IV Q4H PRN PRN Reason: Pain Stop: 01/22/19 13:48 Insulin Aspart (Novolog Flexpen) 0 units SC ACHS DAMASO Stop: 02/07/19 20:59 Last Admin: 01/09/19 13:11 Dose: 2 units Documented by: Insulin Glargine (Lantus Solostar Pen) 10 units SC BID [facility] Stop: 02/07/19 20:59 Last Admin: 01/09/19 09:39 Dose: 10 units Documented by: Lisinopril (Zestril) 20 mg PO [facility] Stop: 02/08/19 08:59 Last Admin: 01/09/19 09:31 Dose: 20 mg Documented by: Magnesium Hydroxide (Milk Of Magnesia) 30 ml PO Q6H PRN PRN Reason: Constipation Stop: 02/07/19 13:47 Meclizine HCl (Antivert) 25 mg PO [facility] Stop: 02/08/19 08:59 Last Admin: 01/09/19 09:33 Dose: 25 mg Documented by: Metoprolol Succinate (Toprol Xl) 100 mg PO [facility] Stop: 02/08/19 08:59 Last Admin: 01/09/19 09:31 Dose: 100 mg Documented by: Miscellaneous (Carbohydrates For Hypoglycemia) 15 - 30 gm PO UD PRN PRN Reason: Hypoglycemia Treatment Stop: 02/07/19 17:56 Multivitamins (Multivitamin Tab) 1 tab PO [facility] Stop: 02/08/19 08:59 Last Admin: 01/09/19 09:33 Dose: 1 tab Documented by: Naloxone HCl (Narcan) 0.1 mg IV Q5M PRN PRN Reason: Oversedation/Resp Depression Stop: 02/07/19 13:47 Ondansetron HCl (Zofran) 4 mg IV Q6H PRN PRN Reason: Nausea And Vomiting Stop: 02/07/19 13:47 Last Admin: 01/08/19 15:46 Dose: 4 mg Documented by: Oxycodone HCl (Roxicodone Immediate Rel) 5 - 10 mg PO Q4H PRN PRN Reason: Pain Stop: 01/22/19 13:47 Last Admin: 01/09/19 15:47 Dose: 5 mg Documented by: Pantoprazole Sodium (Protonix) 40 mg PO [facility] Stop: 02/08/19 08:59 Last Admin: 01/09/19 09:32 Dose: 40 mg Documented by: Risperidone (Risperdal) 2 mg PO QPM [facility] Stop: 06/29/19 20:59 Risperidone (Risperdal) 1 mg PO [facility] Stop: 02/08/19 08:59 Last Admin: 01/09/19 09:32 Dose: 1 mg Documented by: Sennosides (Senokot) 17.2 mg PO [facility] Stop: 02/07/19 20:59 Last Admin: 01/08/19 20:32 Dose: 17.2 mg Documented by: Sertraline HCl (Zoloft) 200 mg PO [facility] Stop: 02/08/19 20:59 (1) Hypertension Hypertension type: essential hypertension Qualified Code(s): I10 - Essential (primary) hypertension (2) Hyperlipidemia Hyperlipidemia type: unspecified Qualified Code(s): E78.5 - Hyperlipidemia, unspecified (3) GERD (gastroesophageal reflux disease) Esophagitis presence: esophagitis presence not specified Qualified Code(s): K21.9 - Gastro-esophageal reflux disease without esophagitis (4) Diabetes Diabetes mellitus type: type 2 Diabetes mellitus group 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
[2019-01-09] MEDS: SENNA 8.6 MG TAB PO SCH (21:09)
[2019-01-09] MEDS: SERTRALINE HCL 100 MG TABLET PO SCH (21:09)
[2019-01-10] MEDS: ACETAMINOPHEN 500 MG TAB PO SCH ×3 (05:25→20:55)
--- NOTE | 2019-01-10 07:16 | Orthopedic Progress Note ---
Date of Service January 10, 2019 POD #2 s/p left TKA Assessment & Plan (1) Osteoarthritis of left knee: POD #2 s/p left TKA pt/ot dvt proph with kit/scd/asa 81mg po bid x 1 month wbat with walker pain management with oxycodone, hydromorphone, acetaminophen. D/C planning: will discuss with CM poss SNF vs rehab Subjective patient doing well denies CP/SOB denies Fever/Chills pain currently 2/ Physical Exam Physical Exam: Vital Signs Temp Pulse Resp BP Pulse Ox 01/10/19 07:08 36.8 C 60 16 93/60 L 92 01/10/19 00:00 36.7 C 54 L 16 116/71 98 01/09/19 15:43 36.6 C 56 L 19 109/68 98 01/09/19 07:19 36.4 C L 64 18 112/65 100 Intake and Output 01/09/19 01/10/19 01/10/19 22:59 06:59 14:59 Intake Total 600 / 1095 Output Total 90 / 190 Balance 510 / 905 Intake: Oral 600 / 1095 Output: Drain Output 90 / 190 Left Knee Hemo vac 90 / 190 Musculoskeletal: left leg: NVDI, calf SNT, negative daniele sign. DP palpable, able to wiggle toes/ankle movement without difficulty. Prevena dressing clean dry and intact. expected post-operative bruising noted. Results & Data Vital Signs (Past 12 Hours) Vital Signs Temp Pulse Resp BP Pulse Ox 01/10/19 07:08 36.8 C 60 16 93/60 L 92 01/10/19 00:00 36.7 C 54 L 16 116/71 98
[2019-01-10] MEDS: ASPIRIN 81 MG ECTAB PO SCH ×2 (09:00→20:54)
[2019-01-10] MEDS: PANTOprazole 40 MG TAB PO SCH (09:01)
[2019-01-10] MEDS: MULTIVITAMIN TAB PO SCH (09:01)
[2019-01-10] MEDS: DOCUSATE SODIUM 100 MG CAP PO SCH ×2 (09:01→20:54)
[2019-01-10] MEDS: GEMFIBROZIL 600 MG TAB PO SCH ×2 (09:01→20:54)
[2019-01-10] MEDS: GABAPENTIN 300 MG CAP PO SCH ×4 (09:01→20:55)
[2019-01-10] MEDS: risperiDONE 2 MG TABLET PO SCH ×2 (09:02→20:55)
[2019-01-10] MEDS: MECLIZINE HCL 25 MG TAB PO SCH (09:02)
[2019-01-10] MEDS: METOPROLOL SUCC 50MG EXT REL TAB PO SCH (09:08)
[2019-01-10] MEDS: LISINOPRIL 40 MG TAB PO SCH (09:09)
[2019-01-10] MEDS: INSULIN ASPART 100 UNITS/ML 3 ML PEN SC SCH ×4 (09:11→21:38)
[2019-01-10] MEDS ORDERED: INSULIN GLARGINE SOLOSTAR 100 UNITS/ML 3 ML PEN SC ONE (09:21)
[2019-01-10] MEDS: INSULIN GLARGINE SOLOSTAR 100 UNITS/ML 3 ML PEN SC SCH ×2 (09:43→21:37)
[2019-01-10] MEDS: OXYCODONE HCL IR 5 MG TAB (IMMEDIATE RELEASE) PO PRN ×3 (11:22→22:25)
[2019-01-10] MEDS: SERTRALINE HCL 100 MG TABLET PO SCH (20:55)
[2019-01-10] MEDS: SENNA 8.6 MG TAB PO SCH (20:55)
[2019-01-11] MEDS: ACETAMINOPHEN 500 MG TAB PO SCH (05:52)
[2019-01-11] MEDS: OXYCODONE HCL IR 5 MG TAB (IMMEDIATE RELEASE) PO PRN ×2 (07:37→12:51)
[2019-01-11] MEDS: risperiDONE 2 MG TABLET PO SCH (07:37)
[2019-01-11] MEDS: GABAPENTIN 300 MG CAP PO SCH ×2 (07:38→12:48)
[2019-01-11] MEDS: METOPROLOL SUCC 50MG EXT REL TAB PO SCH (07:38)
[2019-01-11] MEDS: ASPIRIN 81 MG ECTAB PO SCH (07:38)
[2019-01-11] MEDS: MULTIVITAMIN TAB PO SCH (07:38)
[2019-01-11] MEDS: PANTOprazole 40 MG TAB PO SCH (07:38)
[2019-01-11] MEDS: LISINOPRIL 40 MG TAB PO SCH (07:38)
[2019-01-11] MEDS: MECLIZINE HCL 25 MG TAB PO SCH (07:39)
[2019-01-11] MEDS: GEMFIBROZIL 600 MG TAB PO SCH (07:39)
[2019-01-11] MEDS: DOCUSATE SODIUM 100 MG CAP PO SCH (07:39)
[2019-01-11] MEDS: INSULIN GLARGINE SOLOSTAR 100 UNITS/ML 3 ML PEN SC SCH (07:43)
[2019-01-11] MEDS: INSULIN ASPART 100 UNITS/ML 3 ML PEN SC SCH ×2 (07:44→12:48)
--- NOTE | 2019-01-11 08:29 | Orthopedic Progress Note ---
Date of Service January 11, 2019 Assessment & Plan (1) Osteoarthritis of left knee: POD #3 s/p left TKA pt/ot dvt proph with kit/scd/asa 81mg po bid x 1 month wbat with walker pain management with oxycodone, hydromorphone, acetaminophen. D/C planning: To [facility] later today Subjective patient doing well denies CP/SOB denies Fever/Chills Pain is controlled Review of Systems Review of Systems: All systems reviewed & are unremarkable except as noted in HPI & below Physical Exam Physical Exam: Prevena in place, c/d/i. Is suctioning appropriately. No calf tenderness. Toes are mobile. Sensation and n/v status intact. Results & Data Vital Signs (Past 12 Hours) Vital Signs Temp Pulse Pulse Pulse Resp BP BP 01/11/19 07:49 36.8 C 72 84 73 16 134/78 93/60 L 01/11/19 06:58 36.8 C 84 16 134/78 01/10/19 23:07 37 C 73 18 106/64 Pulse Ox 01/11/19 07:49 95 01/11/19 06:58 95 01/10/19 23:07 94
--- NOTE | 2019-01-14 04:57 | Discharge Summary ---
DISCHARGE DIAGNOSIS: Degenerative joint disease, left knee. SECONDARY DIAGNOSES: Asthma, cardiac murmur, chronic obstructive pulmonary disease, depression, diabetes mellitus type 2, gastroesophageal reflux disease, hyperlipidemia, hypertension, osteoarthritis, pulmonary hypertension, sleep apnea, spinal stenosis, history of cerebrovascular accident in 2010. CONSULTS: Dr. Christen Jaffe. COMPLICATIONS: None. PROCEDURES: Left total knee arthroplasty performed by Dr. Jauregui on 01/08/2019. BRIEF HISTORY: As dictated in the history and physical. HOSPITAL SUMMARY: The patient was admitted on the above-noted date and had the above-noted surgery performed, which she tolerated well. On the first postoperative day, she was sitting up in her chair at the bedside. She was alert and oriented. She had no complaints at that time. Denies shortness of breath, chest pain or lightheadedness. Pain was controlled. Dressings clean, dry and intact. Calves were soft, nontender. Neurovascularly intact. Toes mobile. Vital signs were stable and she was afebrile and she was started on physical therapy protocol and continued on DVT prophylaxis and pain management. She was continued to be followed by [facility] during her stay. By her second postoperative day, she was doing well and had no complaints. Pain was controlled. Vital signs were stable. She was afebrile. Neurovascularly intact. Calves were soft, nontender. Dorsalis pedis was palpable. Toes were mobile. Prevena dressing was clean, dry and intact, and she was continued on her protocols with her PT and OT and DVT prophylaxis and pain management. By her third postoperative day, she continued to remain stable. She was progressing well with her PT and plans were for [facility]. Prevena dressing was in place and functioning. No calf tenderness. Toes were mobile. Neurovascularly intact. Vital signs were stable. Hemoglobin had dropped to 9.5, but she was otherwise remaining asymptomatic and she was thusly transferred to [facility] on 01/11/2019. For further review, please see chart. LABORATORY AND X-RAY DATA: As per chart. DISCHARGE INSTRUCTIONS: The patient was discharged to [facility] on 01/11/2019. Diet: Regular. Activity: Weightbearing as tolerated on left lower extremity. Follow TK instruction sheets and special care instructions as noted. Follow up with Dr. Jauregui in 2 weeks. The patient is to call for appointment if one has not been made for you. DISCHARGE MEDICATIONS: Acetaminophen 1000 mg p.o. q. 8 hours, aspirin 81 mg p.o. b.i.d., cefadroxil 500 mg p.o. b.i.d., oxycodone 5-10 mg p.o. q. 4-6 hours p.r.n. Resume home meds as listed and stop taking previous aspirin dosage.
== END 2019-01-11 13:37 | DRG 470 ==
LOC: ASU 08:43 → 3E 13:49